=== PATIENT | male | born 1960 | race Caucasian/White ===

== ENCOUNTER 2021-12-22 18:08 | Emergency (ER) | payer OTHER ==
[~2021-12-22] VITALS: Ht 167.6 cm; Wt 75.7 kg
[2021-12-22 18:17] VITALS: BP_SYST 119
--- NOTE | 2021-12-22 18:20 | NUR ---
Patient triaged and placed in waiting room. VSS and patient appears in no acute distress at this time. Accompanied by , awaiting available bed, and MD notified of need for MSE.
--- NOTE | 2021-12-22 18:30 | NUR ---
ER DR. CHAMBERS EXAMINING PT IN TRIAGE
[2021-12-22] MEDS ORDERED: HYDR-3917 PO (19:34)
[2021-12-22] MEDS ORDERED: IBUP-1971 PO (19:34)
[2021-12-22] MEDS ORDERED: HYDROcodone/ACETAMIN 10-325 MG TAB PO ONE (19:45)
[2021-12-22] MEDS ORDERED: IBUPROFEN 800 MG TABLET PO ONE (19:45)
--- NOTE | 2021-12-22 19:50 | NUR ---
Pt from home after mechanical fall, missed 2 steps and fell onto concrete. Pt presents with orbital swelling, abrasions to face and lip. Pain 10/10 and no active bleeding.
[2021-12-22 20:20] VITALS: BP_SYST 119
--- NOTE | 2021-12-22 20:20 | NUR ---
Patient given written and verbal discharge instructions and verbalizes understanding. ER Dr. Larsen discussed with patient the results and treatment provided. Patient in stable condition. ID arm band removed. Rx of norco and motrin given. Patient educated on pain management and to follow up with PMD. Pain Scale 0. Opportunity for questions provided and answered. Medication side effect fact sheet provided.
== END 2021-12-22 20:20 | disposition home or self-care (01) ==
LOC: SED 18:08
DX: S00.83XA Contusion of other part of head, initial encounter (principal); Z79.899 Other long term (current) drug therapy; W10.8XXA Fall (on) (from) other stairs and steps, initial encounter; Y93.89 Activity, other specified; Y92.89 Other specified places as the place of occurrence of the external cause; Y99.8 Other external cause status
CPT/HCPCS: 70450-TC; 70486-TC; 76376; 99284